=== PATIENT | male | born 1975 | race Caucasian/White ===

== ENCOUNTER → 2017-02-15 | Outpatient (CLI) | payer OTHER ==
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
== END | disposition home or self-care (01) ==
LOC: ADTC.GI 12:53
DX: F10.20 Alcohol dependence, uncomplicated (principal); F15.21 Other stimulant dependence, in remission

== ENCOUNTER 2017-02-27 21:19 | Emergency (ER) | payer SELFPAY ==
--- NOTE | 2017-02-28 19:16 | ER ---
ADMIT: 02/27/2017 RM/LOC: ER [facility] MR#: [id number] [address] [address] MEGGAN CHILDS [address] [place] [id number] Emergency Room Report SEX: M AGE: 41 : 1975 DATE: 02/27/2017 Patient is a 41-year-old male with 7-day history of waxing and waning abdominal pain mid epigastric to left upper quadrant, at times radiating to back and right lower quadrant associated with diarrhea and nausea. No vomiting, fevers, or chills. Exam remarkable for nontoxic, afebrile male. WBC 12.0, lactic 1.0. CRP less than 0.29. Negative alcohol. Normal lipase. Negative tox screen. CT abdomen and pelvis shows normal appendix and otherwise unremarkable. The patient was given a liter of fluid, Zofran, Toradol, Protonix, Dilaudid with relief of pain. Recommend [id number] Prilosec. Quit smoking. Follow up [facility] as needed. Ajay Morocho MD/ oscar JOB #: [id number] CC: Ajay Morocho MD, Attending Physician Parveen Potts MD, Family Physician
== END 2017-02-27 23:00 | disposition home or self-care (01) ==
LOC: ER 21:19
DX: R10.12 Left upper quadrant pain (principal); Z88.8 Allergy status to other drugs, medicaments and biological substances; Z98.890 Other specified postprocedural states; Z79.899 Other long term (current) drug therapy